=== PATIENT | male | born 1990 | race Two or more races ===

== ENCOUNTER 2019-10-29 09:18 | Outpatient (CLI) | payer OTHER | END 2019-10-29 15:00 | disposition home or self-care (01) | LOC: EDBD 09:18 → LAB SALUS 09:18 | DX: Z13.1 Encounter for screening for diabetes mellitus (principal); Z11.4 Encounter for screening for human immunodeficiency virus [HIV]; Z72.51 High risk heterosexual behavior; Z11.3 Encounter for screening for infections with a predominantly sexual mode of transmission ==